=== PATIENT | male | born 1930 | race Asian ===

== ENCOUNTER 2019-10-24 20:41 | Inpatient (IN) | payer MEDICARE ==
[~2019-10-24] VITALS: Ht 170.2 cm; Wt 72.9 kg
--- NOTE | 2019-10-24 21:15 | NUR ---
SEE TRIAGE NOTE. EKG DONE ON ARRIVAL. PT PLACED ON ALL ROOM MONITORING. PT REPORTS RECENT TRAVEL FROM HOME ([place]) TO [place] WITHIN LAST WEEK AND THEN TO [facility] WITH SON YESTERDAY. PT STATES BLE SWELLING AND SOB WORSENED YESTERDAY. PT DENIES CP. NOTED IN CHART-ELEVATED TROP, LIVER ENZYMES, DDIMER AND BLOOD GLUCOSE. CALL LIGHT WITHIN REACH. REPORT TO SOFIA, TRANSFER OF CARE AT THIS TIME.
--- NOTE | 2019-10-24 21:22 | NUR ---
Pt alert and resting on gurney. Pt reports his breathing is better from earlier. Pt noted to by slightly tachypenic. Decreased breath sounds noted to left lower pace. Pt in gown and on full monitors. IV to left AC saline locked from CTH. Pt aware of plan for CT and labs. Call light within reach.
--- NOTE | 2019-10-24 21:34 | NUR ---
+3 bilateral edema noted to bilat lower ankles and feet. Pt able to stand at bedside to void in urinal.
[2019-10-24 21:45] LABS: BASOPHILS # (AUTO) 0.01 x10^3/uL (0-0.1); BASOPHILS % (AUTO) 0 % (0-1); EOSINOPHILS # (AUTO) 0.13 x10^3/uL (0-0.4); EOSINOPHILS % (AUTO) 2 % (1-7); LYMPHOCYTES # (AUTO) 1.08 x10^3/uL (1-3.4); LYMPHOCYTES % (AUTO) 15 % (22-44); MD NO; MEAN CORPUSCULAR HEMOGLOBIN 31.3 pg (27.5-34.5); MEAN CORPUSCULAR HGB CONC 32.5 g/dL (33.2-36.2); MEAN CORPUSCULAR VOLUME 96.5 fL (81-97); MEAN PLATELET VOLUME 11.8 fL (7.4-10.4); MONOCYTES # (AUTO) 0.28 x10^3/uL (0.2-0.8); MONOCYTES % (AUTO) 4 % (2-9); NEUTROPHILS # (AUTO) 5.85 x10^3/uL (1.8-6.8); NEUTROPHILS % (AUTO) 80 % (42-75); PLATELET COUNT 179 x10^3/uL (130-400); RED BLOOD COUNT 5.11 x10^6/uL (4.38-5.82); RED CELL DISTRIBUTION WIDTH 15.6 % (9.4-14.8)
[2019-10-24 21:55] LABS: ALBUMIN 3.2 g/dL (3.4-5.0); ANION GAP 8 mmol/L (5-15); CALCIUM 8.5 mg/dL (8.5-10.1); CHLORIDE 108 mmol/L (98-107)
[2019-10-24 21:59] LABS: CREATININE 1.72 mg/dL (0.7-1.3); TROPONIN I 0.031 ng/mL (0.000-0.045)
--- NOTE | 2019-10-24 22:08 | NUR ---
Pt son now at bedside. Pt expressed frustration and concern that he got the "run around" today from the other healthcare providers, and was unclear as to why certain tests were being run. Pt plan of care and tests explained to pt and son with their understanding.
--- NOTE | 2019-10-24 22:14 | NUR ---
ERP aware of pt's CMP results. ERP okay with scan. CT notified. Pt and son updated.
[2019-10-24] MEDS ORDERED: AMLO10TA4 PO (23:00)
[2019-10-24] MEDS ORDERED: MORPHINE SULFATE 4 MG/ML, 1ML IVPush PRN (23:00)
[2019-10-24] MEDS ORDERED: METF500T17 PO (23:00)
[2019-10-24] MEDS ORDERED: ONDANSETRON 2MG/ML, 2ML IVPush PRN (23:00)
[2019-10-24] MEDS ORDERED: ASPI-515 PO (23:00)
[2019-10-24] MEDS ORDERED: OMNIPAQUE 350 MG/ML, 100ML BOTTLE ONE (23:07)
--- NOTE | 2019-10-24 23:23 | NUR ---
VSS. Pt given water and snacks, okay per ERP.
--- NOTE | 2019-10-24 23:41 | NUR ---
Admitting MD at bedside.
--- NOTE | 2019-10-24 23:47 | NUR ---
Report called to Gabriela BAGLEY
--- NOTE | 2019-10-25 00:26 | NUR ---
Pt to room via [facility] with echo vasc tech. Pt status unchanged.
[2019-10-25] MEDS ORDERED: TRAZODONE 50MG TABLET PO PRN (00:30)
[2019-10-25] MEDS ORDERED: ONDANSETRON 2MG/ML, 2ML IVPush PRN (00:30)
[2019-10-25] MEDS ORDERED: morphine SULFATE 10 MG/ML, 1ML IVPush PRN (00:30)
[2019-10-25] MEDS ORDERED: hydrALAzine 20 MG/ML, 1ML IVPush PRN (00:30)
[2019-10-25] MEDS ORDERED: ACETAMINOPHEN 325 MG TABLET PO PRN (00:30)
[2019-10-25 00:37] VITALS: BP 156/104
[2019-10-25] MEDS: INSULIN LISPRO 100 UNITS/ML, PEN SQ-INSULIN SCH ×2 (01:42→07:00)
[2019-10-25] MEDS: HEPARIN 5,000 UNITS/ML, 1ML SQ SCH ×3 (01:42→17:05)
[2019-10-25 05:22] LABS: CHOL/HDL RATIO 2.9; LDL/HDL RATIO 1.6 (0.5-3.0)
[2019-10-25 07:01] VITALS: BP 128/95
[2019-10-25] MEDS ORDERED: AMLODIPINE 10 MG TAB PO SCH (09:00)
[2019-10-25] MEDS: FUROSEMIDE 20 MG/2 ML IV SCH ×2 (09:09→17:06)
[2019-10-25] MEDS: ASPIRIN 81 MG TABLET EC PO SCH (09:10)
[2019-10-25] MEDS: INSULIN REGULAR 100 UNITS/ML, 3ML VIAL SQ-INSULIN SCH ×3 (11:00→22:24)
[2019-10-25 13:17] VITALS: BP 122/81
[2019-10-25] MEDS: CARVEDILOL 3.125 MG TABLET PO SCH (17:08)
[2019-10-25 19:05] VITALS: BP 108/76
[2019-10-26 00:30] VITALS: BP 112/65
[2019-10-26] MEDS: HEPARIN 5,000 UNITS/ML, 1ML SQ SCH ×3 (01:25→17:27)
[2019-10-26 04:52] LABS: BASOPHILS # (AUTO) 0.04 x10^3/uL (0-0.1); BASOPHILS % (AUTO) 1 % (0-1); EOSINOPHILS # (AUTO) 0.32 x10^3/uL (0-0.4); EOSINOPHILS % (AUTO) 4 % (1-7); LYMPHOCYTES # (AUTO) 1.83 x10^3/uL (1-3.4); LYMPHOCYTES % (AUTO) 24 % (22-44); MD NO; MEAN CORPUSCULAR HEMOGLOBIN 31.3 pg (27.5-34.5); MEAN CORPUSCULAR HGB CONC 32.3 g/dL (33.2-36.2); MEAN PLATELET VOLUME 10.8 fL (7.4-10.4); MONOCYTES # (AUTO) 0.42 x10^3/uL (0.2-0.8); MONOCYTES % (AUTO) 6 % (2-9); NEUTROPHILS # (AUTO) 4.88 x10^3/uL (1.8-6.8); NEUTROPHILS % (AUTO) 65 % (42-75); PLATELET COUNT 170 x10^3/uL (130-400); RED BLOOD COUNT 4.83 x10^6/uL (4.38-5.82); RED CELL DISTRIBUTION WIDTH 15.2 % (9.4-14.8)
[2019-10-26 05:02] LABS: ANION GAP 9 mmol/L (5-15); CALCIUM 8.2 mg/dL (8.5-10.1); CHLORIDE 107 mmol/L (98-107)
[2019-10-26 05:03] LABS: CREATININE 1.07 mg/dL (0.7-1.3)
[2019-10-26] MEDS: CARVEDILOL 3.125 MG TABLET PO SCH ×2 (06:53→17:27)
[2019-10-26] MEDS: INSULIN REGULAR 100 UNITS/ML, 3ML VIAL SQ-INSULIN SCH ×4 (07:00→21:39)
[2019-10-26 07:10] VITALS: BP 130/85
[2019-10-26] MEDS: FUROSEMIDE 20 MG/2 ML IV SCH ×2 (07:30→17:27)
[2019-10-26] MEDS ORDERED: REGADENOSON 0.4 MG/5 ML SYRINGE ONE (08:37)
[2019-10-26] MEDS: ASPIRIN 81 MG TABLET EC PO SCH (10:16)
[2019-10-26] MEDS: IRBESARTAN 150 MG TABLET PO SCH (10:17)
[2019-10-26] MEDS ORDERED: POTASSIUM CHLORIDE 20 MEQ TAB.ER.PRT PO ONE (10:30)
[2019-10-26] MEDS: SPIRONOLACTONE 25 MG TABLET PO SCH (12:09)
[2019-10-26] MEDS ORDERED: LIDOCAINE 1%, 10ML ONE (12:17)
[2019-10-26 15:51] VITALS: BP 116/79
[2019-10-26 20:50] VITALS: BP 104/70
[2019-10-27] MEDS: HEPARIN 5,000 UNITS/ML, 1ML SQ SCH ×3 (01:12→16:53)
[2019-10-27 01:16] VITALS: BP 102/63
[2019-10-27 04:48] LABS: BASOPHILS # (AUTO) 0.03 x10^3/uL (0-0.1); BASOPHILS % (AUTO) 0 % (0-1); EOSINOPHILS # (AUTO) 0.26 x10^3/uL (0-0.4); EOSINOPHILS % (AUTO) 4 % (1-7); LYMPHOCYTES # (AUTO) 1.55 x10^3/uL (1-3.4); LYMPHOCYTES % (AUTO) 23 % (22-44); MD NO; MEAN CORPUSCULAR HEMOGLOBIN 30.9 pg (27.5-34.5); MEAN CORPUSCULAR HGB CONC 32.1 g/dL (33.2-36.2); MEAN CORPUSCULAR VOLUME 96.3 fL (81-97); MEAN PLATELET VOLUME 11.5 fL (7.4-10.4); MONOCYTES # (AUTO) 0.46 x10^3/uL (0.2-0.8); MONOCYTES % (AUTO) 7 % (2-9); NEUTROPHILS # (AUTO) 4.38 x10^3/uL (1.8-6.8); NEUTROPHILS % (AUTO) 66 % (42-75); PLATELET COUNT 178 x10^3/uL (130-400); RED BLOOD COUNT 5.07 x10^6/uL (4.38-5.82); RED CELL DISTRIBUTION WIDTH 14.9 % (9.4-14.8)
[2019-10-27 05:03] LABS: CHLORIDE 107 mmol/L (98-107)
[2019-10-27 05:08] LABS: ALBUMIN 2.9 g/dL (3.4-5.0); ANION GAP 7 mmol/L (5-15); CALCIUM 8.5 mg/dL (8.5-10.1); CREATININE 1.22 mg/dL (0.7-1.3)
[2019-10-27] MEDS: CARVEDILOL 3.125 MG TABLET PO SCH (05:53)
[2019-10-27 06:30] VITALS: BP 143/93
[2019-10-27] MEDS: INSULIN REGULAR 100 UNITS/ML, 3ML VIAL SQ-INSULIN SCH ×4 (07:00→20:52)
[2019-10-27] MEDS: SPIRONOLACTONE 25 MG TABLET PO SCH (08:42)
[2019-10-27] MEDS: IRBESARTAN 150 MG TABLET PO SCH (08:43)
[2019-10-27] MEDS: FUROSEMIDE 20 MG/2 ML IV SCH ×2 (08:43→16:52)
[2019-10-27] MEDS: ASPIRIN 81 MG TABLET EC PO SCH (08:43)
[2019-10-27 12:24] VITALS: BP 133/86
[2019-10-27] MEDS: CARVEDILOL 6.25 MG TABLET PO SCH (16:53)
[2019-10-27 18:09] VITALS: BP 106/78
[2019-10-27 23:45] VITALS: BP 106/69
[2019-10-28] MEDS: HEPARIN 5,000 UNITS/ML, 1ML SQ SCH ×2 (01:08→09:01)
[2019-10-28 05:35] LABS: BASOPHILS # (AUTO) 0.02 x10^3/uL (0-0.1); BASOPHILS % (AUTO) 0 % (0-1); EOSINOPHILS % (AUTO) 3 % (1-7); LYMPHOCYTES # (AUTO) 1.35 x10^3/uL (1-3.4); LYMPHOCYTES % (AUTO) 23 % (22-44); MD NO; MEAN CORPUSCULAR HEMOGLOBIN 31.1 pg (27.5-34.5); MEAN CORPUSCULAR HGB CONC 32.2 g/dL (33.2-36.2); MEAN CORPUSCULAR VOLUME 96.4 fL (81-97); MEAN PLATELET VOLUME 11.3 fL (7.4-10.4); MONOCYTES # (AUTO) 0.41 x10^3/uL (0.2-0.8); MONOCYTES % (AUTO) 7 % (2-9); NEUTROPHILS # (AUTO) 3.86 x10^3/uL (1.8-6.8); NEUTROPHILS % (AUTO) 66 % (42-75); PLATELET COUNT 168 x10^3/uL (130-400)
[2019-10-28 05:44] LABS: CALCIUM 8.4 mg/dL (8.5-10.1); CHLORIDE 105 mmol/L (98-107)
[2019-10-28 05:48] LABS: ANION GAP 9 mmol/L (5-15); CREATININE 1.13 mg/dL (0.7-1.3)
[2019-10-28] MEDS: CARVEDILOL 6.25 MG TABLET PO SCH (06:12)
[2019-10-28 06:35] VITALS: BP 128/69
[2019-10-28] MEDS: INSULIN REGULAR 100 UNITS/ML, 3ML VIAL SQ-INSULIN SCH ×3 (07:23→16:10)
[2019-10-28] MEDS ORDERED: FUROSEMIDE 40 MG TABLET ONE (08:46)
[2019-10-28] MEDS ORDERED: INSULIN GLARGINE 100 UNITS/ML, PEN SQ-INSULIN SCH ×3 (09:00→09:41)
[2019-10-28] MEDS ORDERED: SPIRONOLACTONE 25 MG TABLET PO SCH (09:00)
[2019-10-28] MEDS ORDERED: FUROSEMIDE 40 MG TABLET PO SCH (09:00)
[2019-10-28] MEDS: IRBESARTAN 150 MG TABLET PO SCH (09:00)
[2019-10-28] MEDS: ASPIRIN 81 MG TABLET EC PO SCH (09:00)
[2019-10-28] MEDS ORDERED: FUROSEMIDE 20 MG TABLET PO SCH (09:00)
[2019-10-28 12:09] VITALS: BP 108/67
[2019-10-28] MEDS ORDERED: FURO20TA3 PO (13:49)
[2019-10-28] MEDS ORDERED: CARV6.2512 PO (13:49)
[2019-10-28] MEDS ORDERED: IRBE150T49 PO (13:49)
[2019-10-28] MEDS ORDERED: INSU100V5 SQ-INSULIN (13:49)
[2019-10-28] MEDS ORDERED: INSU100I13 SQ-INSULIN (13:49)
[2019-10-28] MEDS ORDERED: SPIR25TA PO (13:49)
[2019-10-29] MEDS ORDERED: INSULIN GLARGINE 100 UNITS/ML, PEN SQ-INSULIN SCH (09:00)
== END 2019-10-28 16:30 | disposition home or self-care (01) | DRG 291 ==
LOC: ED 23:05 → EDIP 23:10 → 5SO 23:54
PROVIDERS: ADMIT Family Medicine; ATTEND Internal Medicine
DX: I11.0 Hypertensive heart disease with heart failure (principal); N17.0 Acute kidney failure with tubular necrosis; J91.8 Pleural effusion in other conditions classified elsewhere; E78.5 Hyperlipidemia, unspecified; R00.0 Tachycardia, unspecified; E11.65 Type 2 diabetes mellitus with hyperglycemia; E87.6 Hypokalemia; I25.5 Ischemic cardiomyopathy; M79.89 Other specified soft tissue disorders; I71.2 Thoracic aortic aneurysm, without rupture; Z66 Do not resuscitate; Z79.899 Other long term (current) drug therapy; Z79.4 Long term (current) use of insulin; Z82.49 Family history of ischemic heart disease and other diseases of the circulatory system; Z87.891 Personal history of nicotine dependence; Z53.8 Procedure and treatment not carried out for other reasons; I50.23 Acute on chronic systolic (congestive) heart failure
CPT/HCPCS: 32555; 36415; 71275; 78452; 80048; 80061; 80069; 82040; 82962; 83036; 83735; 84100; 84443; 84484; 85025; 93005; 93017; 93306; 93970; G0378; J1644; J1815; J2785; Q9967; A9502; J1940

== ENCOUNTER 2020-04-13 12:47 | Inpatient (IN) | payer OTHER, MEDICARE ==
[~2020-04-13] VITALS: Ht 177.8 cm; Wt 69.8 kg
[~2020-04-13 12:47] MED LIST: AMLO10TA4 PO; ASPI-963 PO; CARV6.2512 PO; FURO20TA3 PO; INSU100I13 SQ-INSULIN; INSU100V5 SQ-INSULIN; IRBE150T49 PO; METF500T17 PO; SPIR25TA PO
--- NOTE | 2020-04-13 13:07 | NUR ---
sharmin COELLO from [facility]. per pt and [facility] 4d ago pt was feeling weak, 2d ago pt was unable to perform any ADL's. unable to ambulate. baseline pt walks unassisted with a cane.
--- NOTE | 2020-04-13 13:31 | NUR ---
PT GIVEN URINAL AND INSTRUCTED TO GIVE URINE SAMPLE. XR AND LAB AT BEDSIDE
--- NOTE | 2020-04-13 13:39 | NUR ---
report taken from KEVYN Solorio.
[2020-04-13 13:58] LABS: BASOPHILS % (AUTO) 1 % (0-1); EOSINOPHILS % (AUTO) 0 % (1-7); LYMPHOCYTES % (AUTO) 14 % (22-44); MEAN CORPUSCULAR HEMOGLOBIN 32.9 pg (27.5-34.5); MEAN CORPUSCULAR HGB CONC 34.4 g/dL (33.2-36.2); MEAN PLATELET VOLUME 8.7 fL (7.4-10.4); MONOCYTES % (AUTO) 7 % (2-9); NEUTROPHILS % (AUTO) 78 % (42-75); PLATELET COUNT 194 x10^3/uL (130-400); RED CELL DISTRIBUTION WIDTH 12.2 % (9.4-14.8)
[2020-04-13 14:01] LABS: MD NO
[2020-04-13 14:03] LABS: ALANINE AMINOTRANSFERASE 27 U/L (12-78); ALBUMIN 3.1 g/dL (3.4-5.0); ANION GAP 10 mmol/L (5-15); CALCIUM 8.7 mg/dL (8.5-10.1); CHLORIDE 101 mmol/L (98-107); CREATININE 1.47 mg/dL (0.7-1.3)
[2020-04-13 14:08] LABS: ALKALINE PHOSPHATASE 84 U/L (45-117); BILIRUBIN,TOTAL 1.1 mg/dL (0.2-1.0); TOTAL PROTEIN 7.5 g/dL (6.4-8.2)
--- NOTE | 2020-04-13 14:14 | NUR ---
pt assisted to use urinal, unable to void at this time, denies urge. pt a&o, resps even and unlabored. pt a&o, resps even and unlabored, nadn. call light in reach.
--- NOTE | 2020-04-13 14:42 | NUR ---
PT UNABLE TO VOID, NOTIFIED. STRAIGHT CATH UA ORDERED, PT EDUCATED BUT REFUSES. REQUESTS TO CONTINUE TO USE URINAL. PER EMS, PT VOIDED IN URINAL EN ROUTE TO [facility].
--- NOTE | 2020-04-13 14:49 | NUR ---
MD SIMON NOTIFIED PT REFUSING STRAIGHT CATH, INSTRUCTED RN TO PROVIDE PT WITH PO FLUIDS. PO FLUIDS PROVIDED AT BEDSIDE. CALL LIGHT IN REACH.
--- NOTE | 2020-04-13 14:50 | NUR ---
REPORT GIVEN TO KEVYN MIRAMONTES WHO IS ASSUMING CARE.
--- NOTE | 2020-04-13 15:29 | NUR ---
inverted t wave and st depression noted on groundwater monitoring technician, primary RN Poppy johnson. repeat EKG ordered for review by MD Holt.
--- NOTE | 2020-04-13 15:29 | NUR ---
Kaitlynn Fontana please call [phone] primary contact
--- NOTE | 2020-04-13 15:59 | NUR ---
This RN provided update to pt's son who is also his POA over the phone per pt permission. He reports the Dr. Young saw pt in October 2019 and had an echocardiogram done that showed decreased ejection fraction. Son also reports pt has been having foot and right arm pain and swelling. Pt was living with son but was just moved to assisted living facility 2 weeks ago where he was in quarantine the whole time.
--- NOTE | 2020-04-13 16:41 | NUR ---
Pt sleeping, breathing equal, non-labored.
--- NOTE | 2020-04-13 17:06 | NUR ---
Pt tried using urinal and was unable to go. Pt agreed to have straight cath- 400 mL output. UA sent to lab.
[2020-04-13 17:17] LABS: MICROSCOPIC NOT IND
--- NOTE | 2020-04-13 17:46 | NUR ---
Called pt's son Naun and gave update. Pt will be admitted.
--- NOTE | 2020-04-13 18:11 | NUR ---
Report called to Camelia.
--- NOTE | 2020-04-13 18:23 | NUR ---
Hospitalist at bedside.
[2020-04-13] MEDS ORDERED: FUROSEMIDE 20 MG TABLET PO SCH (18:30)
--- NOTE | 2020-04-13 18:44 | NUR ---
Pt being transported upstairs.
[2020-04-13] MEDS ORDERED: ONDANSETRON ODT 4 MG PO PRN (19:00)
[2020-04-13] MEDS ORDERED: BISACODYL 10 MG SUPP PR PRN (19:00)
[2020-04-13] MEDS ORDERED: POLYETHYLENE GLYCOL 17 GM PACKET PO PRN (19:00)
[2020-04-13] MEDS ORDERED: ACETAMINOPHEN 325 MG TABLET PO PRN (19:00)
[2020-04-13] MEDS ORDERED: INSULIN REGULAR 100 UNITS/ML, 3ML VIAL SQ-INSULIN SCH (21:00)
[2020-04-13] MEDS ORDERED: SPIRONOLACTONE 25 MG TABLET PO SCH (21:00)
[2020-04-13] MEDS: INSULIN REGULAR, HUMAN 100 UNIT/ML 3ML VIAL LOW DOSE SS SQ-INSULIN SCH (22:08)
[2020-04-13] MEDS: CARVEDILOL 6.25 MG TABLET PO SCH (22:09)
[2020-04-13] MEDS: SODIUM CHLORIDE FLUSH 10ML SYR IVF SCH (22:09)
[2020-04-13] MEDS: HEPARIN 5,000 UNITS/ML, 1ML SQ SCH (22:09)
[2020-04-14 00:44] VITALS: BP 107/62
[2020-04-14 04:47] LABS: BASOPHILS % (AUTO) 0 % (0-1); EOSINOPHILS % (AUTO) 0 % (1-7); LYMPHOCYTES % (AUTO) 12 % (22-44); MEAN CORPUSCULAR HEMOGLOBIN 32.6 pg (27.5-34.5); MEAN CORPUSCULAR HGB CONC 33.8 g/dL (33.2-36.2); MEAN PLATELET VOLUME 8.8 fL (7.4-10.4); MONOCYTES % (AUTO) 5 % (2-9); NEUTROPHILS % (AUTO) 83 % (42-75); PLATELET COUNT 187 x10^3/uL (130-400); RED BLOOD COUNT 3.58 x10^6/uL (4.38-5.82); RED CELL DISTRIBUTION WIDTH 12.2 % (9.4-14.8)
[2020-04-14 04:48] LABS: MD NO
[2020-04-14 04:53] LABS: ANION GAP 8 mmol/L (5-15); CALCIUM 8.6 mg/dL (8.5-10.1); CHLORIDE 104 mmol/L (98-107); CREATININE 1.37 mg/dL (0.7-1.3)
[2020-04-14] MEDS ORDERED: METF500T17 PO (05:44)
[2020-04-14] MEDS: CARVEDILOL 6.25 MG TABLET PO SCH ×2 (05:53→17:47)
[2020-04-14] MEDS: HEPARIN 5,000 UNITS/ML, 1ML SQ SCH ×3 (05:54→23:42)
[2020-04-14 07:07] VITALS: BP 113/54
[2020-04-14] MEDS: INSULIN REGULAR, HUMAN 100 UNIT/ML 3ML VIAL LOW DOSE SS SQ-INSULIN SCH ×4 (08:12→23:35)
[2020-04-14] MEDS: INSULIN GLARGINE 100 UNITS/ML, PEN SQ-INSULIN SCH (08:13)
[2020-04-14] MEDS: FUROSEMIDE 20 MG TABLET PO SCH (08:13)
[2020-04-14] MEDS: SPIRONOLACTONE 25 MG TABLET PO SCH (08:13)
[2020-04-14] MEDS: ASPIRIN 81 MG TABLET EC PO SCH (08:13)
[2020-04-14] MEDS: IRBESARTAN 150 MG TABLET PO SCH (08:14)
[2020-04-14] MEDS: SODIUM CHLORIDE FLUSH 10ML SYR IVF SCH ×2 (08:15→23:30)
[2020-04-14] MEDS: SENNA/DOCUSATE TABLET PO SCH (08:15)
[2020-04-14] MEDS: DOXYCYCLINE 100MG CAP PO SCH ×2 (11:50→23:43)
[2020-04-14 13:17] VITALS: BP 105/71
[2020-04-14 19:43] VITALS: BP 153/78
[2020-04-15 01:50] VITALS: BP 137/47
[2020-04-15 05:19] LABS: BASOPHILS % (AUTO) 0 % (0-1); EOSINOPHILS % (AUTO) 0 % (1-7); LYMPHOCYTES % (AUTO) 14 % (22-44); MEAN CORPUSCULAR HEMOGLOBIN 32.4 pg (27.5-34.5); MEAN CORPUSCULAR HGB CONC 33.9 g/dL (33.2-36.2); MEAN PLATELET VOLUME 9.1 fL (7.4-10.4); MONOCYTES % (AUTO) 6 % (2-9); NEUTROPHILS % (AUTO) 80 % (42-75); PLATELET COUNT 201 x10^3/uL (130-400); RED BLOOD COUNT 3.48 x10^6/uL (4.38-5.82); RED CELL DISTRIBUTION WIDTH 11.9 % (9.4-14.8)
[2020-04-15 05:26] LABS: MD NO
[2020-04-15 05:30] LABS: ANION GAP 8 mmol/L (5-15); CALCIUM 8.3 mg/dL (8.5-10.1); CHLORIDE 106 mmol/L (98-107)
[2020-04-15 05:58] LABS: % IRON SATURATION 19 % (20-55); CREATININE 1.18 mg/dL (0.7-1.3); IRON LEVEL 24 mcg/dL (65-175); TOTAL IRON BINDING CAPACITY 129 mcg/dL (250-450)
[2020-04-15] MEDS: HEPARIN 5,000 UNITS/ML, 1ML SQ SCH ×3 (06:00→23:11)
[2020-04-15] MEDS: CARVEDILOL 6.25 MG TABLET PO SCH ×2 (06:19→17:09)
[2020-04-15 06:40] VITALS: BP 111/61
[2020-04-15] MEDS: INSULIN REGULAR, HUMAN 100 UNIT/ML 3ML VIAL LOW DOSE SS SQ-INSULIN SCH ×4 (07:00→20:11)
[2020-04-15] MEDS: SODIUM CHLORIDE FLUSH 10ML SYR IVF SCH ×2 (09:00→20:11)
[2020-04-15] MEDS: SENNA/DOCUSATE TABLET PO SCH (09:03)
[2020-04-15] MEDS: ASPIRIN 81 MG TABLET EC PO SCH (09:03)
[2020-04-15] MEDS: SPIRONOLACTONE 25 MG TABLET PO SCH (09:03)
[2020-04-15] MEDS: FUROSEMIDE 20 MG TABLET PO SCH (09:04)
[2020-04-15] MEDS: DOXYCYCLINE 100MG CAP PO SCH (09:04)
[2020-04-15] MEDS: IRBESARTAN 150 MG TABLET PO SCH (09:04)
[2020-04-15] MEDS: INSULIN GLARGINE 100 UNITS/ML, PEN SQ-INSULIN SCH (09:08)
[2020-04-15 12:32] VITALS: BP 117/65
[2020-04-15 16:11] LABS: HCT (SEDRATE) 35.6 % (39.2-51.8)
[2020-04-15 18:44] VITALS: BP 112/50
[2020-04-15] MEDS: COLCHICINE 0.6 MG CAPSULE PO SCH (20:11)
[2020-04-16 00:13] VITALS: BP 102/50
[2020-04-16] MEDS: CARVEDILOL 6.25 MG TABLET PO SCH ×2 (06:00→16:55)
[2020-04-16 06:05] VITALS: BP 109/58
[2020-04-16 06:55] VITALS: BP 130/71
[2020-04-16] MEDS ORDERED: FUROSEMIDE 40 MG TABLET ONE (08:27)
[2020-04-16] MEDS: HEPARIN 5,000 UNITS/ML, 1ML SQ SCH ×2 (08:33→16:54)
[2020-04-16] MEDS: IRBESARTAN 150 MG TABLET PO SCH (08:33)
[2020-04-16] MEDS: SPIRONOLACTONE 25 MG TABLET PO SCH (08:33)
[2020-04-16] MEDS: ASPIRIN 81 MG TABLET EC PO SCH (08:33)
[2020-04-16] MEDS: COLCHICINE 0.6 MG CAPSULE PO SCH ×2 (08:33→20:39)
[2020-04-16] MEDS: SENNA/DOCUSATE TABLET PO SCH (08:34)
[2020-04-16] MEDS: INSULIN GLARGINE 100 UNITS/ML, PEN SQ-INSULIN SCH (08:34)
[2020-04-16] MEDS: FUROSEMIDE 20 MG TABLET PO SCH (08:35)
[2020-04-16] MEDS: INSULIN REGULAR, HUMAN 100 UNIT/ML 3ML VIAL LOW DOSE SS SQ-INSULIN SCH ×4 (08:35→20:39)
[2020-04-16] MEDS: SODIUM CHLORIDE FLUSH 10ML SYR IVF SCH ×2 (08:35→20:39)
[2020-04-16 14:00] VITALS: BP 116/52
[2020-04-16 19:51] VITALS: BP 135/69
[2020-04-17] VITALS (7 sets, daily range): BP systolic 103–158; BP diastolic 53–88
[2020-04-17] MEDS: CARVEDILOL 6.25 MG TABLET PO SCH ×2 (05:28→17:32)
[2020-04-17] MEDS: HEPARIN 5,000 UNITS/ML, 1ML SQ SCH ×3 (05:28→21:28)
[2020-04-17] MEDS: INSULIN GLARGINE 100 UNITS/ML, PEN SQ-INSULIN SCH ×2 (08:21→21:38)
[2020-04-17] MEDS: INSULIN REGULAR, HUMAN 100 UNIT/ML 3ML VIAL LOW DOSE SS SQ-INSULIN SCH ×2 (08:22→11:19)
[2020-04-17] MEDS: COLCHICINE 0.6 MG CAPSULE PO SCH ×2 (08:22→21:28)
[2020-04-17] MEDS: FUROSEMIDE 20 MG TABLET PO SCH (08:22)
[2020-04-17] MEDS: SPIRONOLACTONE 25 MG TABLET PO SCH (08:22)
[2020-04-17] MEDS: SENNA/DOCUSATE TABLET PO SCH (08:23)
[2020-04-17] MEDS: IRBESARTAN 150 MG TABLET PO SCH (08:23)
[2020-04-17] MEDS: SODIUM CHLORIDE FLUSH 10ML SYR IVF SCH ×2 (08:28→21:28)
[2020-04-17] MEDS: ASPIRIN 81 MG TABLET EC PO SCH (08:28)
[2020-04-17] MEDS: INSULIN LISPRO 100 UNITS/ML, PEN SQ-INSULIN SCH ×3 (11:30→21:37)
[2020-04-18 01:16] VITALS: BP 132/67
[2020-04-18 05:49] VITALS: BP 154/86
[2020-04-18] MEDS: CARVEDILOL 6.25 MG TABLET PO SCH ×2 (05:49→16:57)
[2020-04-18] MEDS: HEPARIN 5,000 UNITS/ML, 1ML SQ SCH ×3 (05:49→21:21)
[2020-04-18 07:13] VITALS: BP_SYST 173; BP_SYST 177; BP_DIAS 83; BP_DIAS 84
[2020-04-18] MEDS: SENNA/DOCUSATE TABLET PO SCH (07:51)
[2020-04-18] MEDS: ASPIRIN 81 MG TABLET EC PO SCH (07:52)
[2020-04-18] MEDS: COLCHICINE 0.6 MG CAPSULE PO SCH (07:52)
[2020-04-18] MEDS: SODIUM CHLORIDE FLUSH 10ML SYR IVF SCH ×2 (07:52→21:22)
[2020-04-18] MEDS: SPIRONOLACTONE 25 MG TABLET PO SCH (07:52)
[2020-04-18] MEDS: IRBESARTAN 150 MG TABLET PO SCH (07:52)
[2020-04-18] MEDS: FUROSEMIDE 20 MG TABLET PO SCH (07:52)
[2020-04-18] MEDS: INSULIN GLARGINE 100 UNITS/ML, PEN SQ-INSULIN SCH ×2 (07:53→21:22)
[2020-04-18] MEDS: INSULIN LISPRO 100 UNITS/ML, PEN SQ-INSULIN SCH ×4 (07:53→21:22)
[2020-04-18] MEDS: ALLOPURINOL 100 MG TABLET PO SCH ×2 (10:01→21:21)
[2020-04-18 13:35] VITALS: BP 154/83
[2020-04-18 16:55] VITALS: BP 153/83
[2020-04-18 19:06] VITALS: BP 161/83
[2020-04-19 02:48] VITALS: BP 129/77
[2020-04-19] MEDS: CARVEDILOL 6.25 MG TABLET PO SCH (06:00)
[2020-04-19 06:13] VITALS: BP 155/82
[2020-04-19] MEDS: HEPARIN 5,000 UNITS/ML, 1ML SQ SCH ×2 (06:19→13:05)
[2020-04-19 06:42] VITALS: BP 156/88
[2020-04-19] MEDS: INSULIN LISPRO 100 UNITS/ML, PEN SQ-INSULIN SCH ×2 (07:00→11:41)
[2020-04-19] MEDS ORDERED: COLCHICINE 0.6 MG CAPSULE PO SCH (09:00)
[2020-04-19] MEDS: SPIRONOLACTONE 25 MG TABLET PO SCH (10:25)
[2020-04-19] MEDS: IRBESARTAN 150 MG TABLET PO SCH (10:25)
[2020-04-19] MEDS: SENNA/DOCUSATE TABLET PO SCH (10:25)
[2020-04-19] MEDS: ALLOPURINOL 100 MG TABLET PO SCH (10:25)
[2020-04-19] MEDS: ASPIRIN 81 MG TABLET EC PO SCH (10:25)
[2020-04-19] MEDS: SODIUM CHLORIDE FLUSH 10ML SYR IVF SCH (10:26)
[2020-04-19] MEDS: FUROSEMIDE 20 MG TABLET PO SCH (10:26)
[2020-04-19 12:29] VITALS: BP 109/61
[2020-04-19] MEDS ORDERED: ALLO100T30 PO (13:58)
[2020-04-19] MEDS ORDERED: FURO20TA3 PO (13:58)
[2020-04-19] MEDS ORDERED: COLC0.6C3 PO (13:58)
[2020-04-19] MEDS ORDERED: PRED10TA PO (13:58)
[2020-04-19] MEDS ORDERED: INSULIN GLARGINE 100 UNITS/ML, PEN SQ-INSULIN SCH (21:00)
== END 2020-04-19 16:13 | disposition home or self-care (01) | DRG 554 ==
LOC: ED 17:16 → EDIP 17:42 → 4NW 18:51
PROVIDERS: ADMIT Internal Medicine; ATTEND Internal Medicine
PROC: 0T9B70Z Drainage of Bladder with Drainage Device, Via Natural or Artificial Opening (ICD-10-PCS; principal; 2020-04-13)
DX: M10.9 Gout, unspecified (principal); I50.22 Chronic systolic (congestive) heart failure; R65.10 Systemic inflammatory response syndrome (SIRS) of non-infectious origin without acute organ dysfunction; D64.9 Anemia, unspecified; D72.829 Elevated white blood cell count, unspecified; E11.65 Type 2 diabetes mellitus with hyperglycemia; E78.5 Hyperlipidemia, unspecified; E86.0 Dehydration; I11.0 Hypertensive heart disease with heart failure; T38.0X5A Adverse effect of glucocorticoids and synthetic analogues, initial encounter; Z66 Do not resuscitate; R53.83 Other fatigue; M25.551 Pain in right hip; M25.511 Pain in right shoulder; R50.9 Fever, unspecified; Z79.4 Long term (current) use of insulin
CPT/HCPCS: 36415; 71045; 80048; 80053; 81003; 82607; 82728; 82962; 83540; 83550; 83605; 84443; 84484; 84550; 85025; 85651; 87040; 93005; 93306; 99285; G0378; J1644; J1815; J7512